=== PATIENT | male | born 1980 | race Caucasian/White ===

== ENCOUNTER 2018-03-02 22:22 | Emergency (ER) | payer OTHER ==
[~2018-03-02] VITALS: Ht 170.2 cm; Wt 86.0 kg
[2018-03-02 22:24] VITALS: BP 146/98
== END 2018-03-02 23:19 | disposition home or self-care (01) ==
LOC: ED 23:00
DX: H66.91 Otitis media, unspecified, right ear (principal)
CPT/HCPCS: 99283